=== PATIENT | male | born 1950 | race African-American/Black ===

== ENCOUNTER 2017-07-05 18:58 | Inpatient (IN) | payer MEDICARE, MEDICAID ==
[~2017-07-05] VITALS: Ht 172.7 cm; Wt 65.8 kg
[2017-07-05] MEDS ORDERED: SODIUM CHLORIDE 0.9% 1,000 ML IV ONE (21:55)
[2017-07-05] MEDS ORDERED: ONDANSETRON HCL 4MG/2ML VIAL IV ONE (22:00)
[2017-07-05] MEDS ORDERED: HYDROMORPHONE HCL/PF 2MG/ML CPJ IV ONE ×2 (22:00→23:45)
[2017-07-05] MEDS ORDERED: HYDROCORTISONE 1% RECTAL CREAM 30GM PR PRN (23:45)
[2017-07-06] VITALS (12 sets, daily range): BP systolic 92–113; BP diastolic 54–68
[2017-07-06 00:29] LABS: MEAN CORPUSCULAR VOLUME 87.5 fL (80.0-94.0); MEAN PLATELET VOLUME 7.4 fl (7.4-10.4); PLATELET 65 x1000/uL (130-400); RED BLOOD CELL COUNT 1.89 mill/uL (4.7-6.1); RED CELL DISTRIBUTION WIDTH 18.9 % (11.6-14.6)
[2017-07-06 00:35] LABS: HEMATOCRIT. 16.5 % (42.0-52.0); HEMOGLOBIN. 5.7 g/dL (14.0-18.0)
[2017-07-06 00:40] LABS: CHLORIDE 106 mEq/L (98-107)
[2017-07-06 00:48] LABS: CARBON DIOXIDE 24 mEq/L (21-32)
[2017-07-06 04:23] LABS: NUCLEATED RED BLOOD CELLS 4 /100 WBC
[2017-07-06 04:26] LABS: PLATELET ESTIMATE DECREASED
[2017-07-06] MEDS: HYDROMORPHONE HCL/PF 2MG/ML CPJ IV PRN ×3 (11:23→21:23)
[2017-07-06 19:39] LABS: HEMATOCRIT. 27.7 % (42.0-52.0); HEMOGLOBIN. 9.7 g/dL (14.0-18.0); MEAN CORPUSCULAR HEMOGLOBIN 30.1 pg (28.0-32.0); MEAN CORPUSCULAR VOLUME 85.5 fL (80.0-94.0); MEAN PLATELET VOLUME 7.6 fl (7.4-10.4); PLATELET 74 x1000/uL (130-400); RED BLOOD CELL COUNT 3.24 mill/uL (4.7-6.1); RED CELL DISTRIBUTION WIDTH 16.6 % (11.6-14.6)
[2017-07-06 20:45] LABS: NUCLEATED RED BLOOD CELLS 5 /100 WBC; PLATELET ESTIMATE DECREASED
[2017-07-07] VITALS: BP 115/72
[2017-07-07] MEDS: HYDROMORPHONE HCL/PF 2MG/ML CPJ IV PRN ×4 (01:27→13:38)
[2017-07-07 04:00] VITALS: BP 127/69
[2017-07-07] MEDS ORDERED: PENT400T2 PO (07:37)
[2017-07-07] MEDS ORDERED: TAMS-11 PO (07:37)
[2017-07-07] MEDS ORDERED: OXYB5TAB11 PO (07:37)
[2017-07-07] MEDS ORDERED: FURO-152 PO (07:37)
[2017-07-07 07:40] VITALS: BP 124/69
[2017-07-07] MEDS ORDERED: SIMV20TA6 PO (07:43)
[2017-07-07] MEDS ORDERED: OXYBUTYNIN CHLORIDE 5MG TABLET PO SCH (09:00)
[2017-07-07] MEDS ORDERED: TAMSULOSIN HCL 0.4MG SR CAPSULE PO SCH (09:00)
[2017-07-07] MEDS: PENTOXIFYLLINE 400MG TABLET PO SCH ×2 (09:15→13:38)
[2017-07-07 11:56] VITALS: BP 124/71
[2017-07-07 14:06] VITALS: BP 124/71
== END 2017-07-07 15:15 | DRG 811 ==
LOC: ER 20:28 → 8WST 07-06 00:59 → ENRESERV 07-06 04:55 → 8WST 07-06 06:30
PROVIDERS: ADMIT Internal Medicine; ATTEND Internal Medicine
PROC: 30233N1 Transfusion of Nonautologous Red Blood Cells into Peripheral Vein, Percutaneous Approach (ICD-10-PCS; principal; 2017-07-06)
DX: D64.81 Anemia due to antineoplastic chemotherapy (principal); E43 Unspecified severe protein-calorie malnutrition; C79.51 Secondary malignant neoplasm of bone; D63.0 Anemia in neoplastic disease; T45.1X5A Adverse effect of antineoplastic and immunosuppressive drugs, initial encounter; Y84.2 Radiological procedure and radiotherapy as the cause of abnormal reaction of the patient, or of later complication, without mention of misadventure at the time of the procedure; Y92.89 Other specified places as the place of occurrence of the external cause; Z92.21 Personal history of antineoplastic chemotherapy; Z92.3 Personal history of irradiation; Z85.46 Personal history of malignant neoplasm of prostate
CPT/HCPCS: 36415; 71010; 80053; 85025; 86850; 86900; 86920; 96361; 96374; 96375; 96376; 99291; J1170; J2405; J7030; J7050; P9016

== ENCOUNTER 2017-08-11 10:43 | Inpatient (IN) | payer MEDICARE, MEDICAID ==
[~2017-08-11] VITALS: Ht 172.7 cm; Wt 68.9 kg
[~2017-08-11 10:43] MED LIST: FURO-152 PO; OXYB5TAB11 PO; PENT400T2 PO; SIMV20TA6 PO; TAMS-11 PO
[2017-08-11] MEDS ORDERED: MORPHINE SULFATE 4 MG/ML CPJ (NOT FOR IM USE) IV STA (10:52)
[2017-08-11] MEDS ORDERED: MORPHINE SULFATE 2 MG/ML CPJ (NOT FOR IM USE) IV NR (11:23)
[2017-08-11 11:24] LABS: MEAN CORPUSCULAR VOLUME 86.8 fL (80.0-94.0); MEAN PLATELET VOLUME 7.1 fl (7.4-10.4); PLATELET 125 x1000/uL (130-400); RED BLOOD CELL COUNT 2.29 mill/uL (4.7-6.1); RED CELL DISTRIBUTION WIDTH 20.1 % (11.6-14.6)
[2017-08-11 11:28] LABS: HEMATOCRIT. 19.9 % (42.0-52.0); HEMOGLOBIN. 6.6 g/dL (14.0-18.0)
[2017-08-11 11:32] LABS: INR 1.2; PROTHROMBIN TIME 12.4 sec (9.4-11.6)
[2017-08-11 11:42] LABS: CARBON DIOXIDE 16 mEq/L (21-32); CHLORIDE 103 mEq/L (98-107)
[2017-08-11 11:43] LABS: TROPONIN I 0.03 ng/mL (0.00-0.04)
[2017-08-11 11:59] LABS: NUCLEATED RED BLOOD CELLS 2 /100 WBC; PLATELET ESTIMATE SLIGHTLY DECREASED
[2017-08-11] MEDS ORDERED: MORPHINE SULFATE 4 MG/ML CPJ (NOT FOR IM USE) IV ONE (13:00)
[2017-08-11] MEDS ORDERED: HYDRALAZINE HCL 50MG TABLET PO ONE (13:15)
[2017-08-11] MEDS ORDERED: MORPHINE SULFATE 10 MG/ML CPJ IV NR (13:20)
[2017-08-11] MEDS ORDERED: DIPHENHYDRAMINE 50MG/ML VIAL IV ONE (14:15)
[2017-08-11 20:00] VITALS: BP 170/96
[2017-08-11] MEDS: MORPHINE SULFATE 10 MG/ML CPJ IV PRN (20:08)
[2017-08-11] MEDS ORDERED: AMLO10TA4 PO (20:43)
[2017-08-11] MEDS ORDERED: DILT120C11 PO (20:43)
[2017-08-11 21:00] VITALS: BP 170/96
[2017-08-11] MEDS ORDERED: SODIUM CHLORIDE 0.9% 1,000 ML IV SCH (23:00)
[2017-08-12] VITALS (10 sets, daily range): BP systolic 120–204; BP diastolic 85–166
[2017-08-12] MEDS: HYDROMORPHONE HCL/PF 2MG/ML CPJ IV PRN ×3 (00:55→15:11)
[2017-08-12 06:16] LABS: INR 1.2; PROTHROMBIN TIME 12.9 sec (9.4-11.6)
[2017-08-12 06:38] LABS: HEMATOCRIT 21.4 % (42.0-52.0); HEMOGLOBIN 7.3 g/dL (14.0-18.0); MEAN CORPUSCULAR HEMOGLOBIN 29.8 pg (28.0-32.0); MEAN CORPUSCULAR VOLUME 86.7 fL (80.0-94.0); PLATELET 114 x1000/uL (130-400); RED BLOOD CELL COUNT 2.46 mill/uL (4.7-6.1); RED CELL DISTRIBUTION WIDTH 18.5 % (11.6-14.6)
[2017-08-12] MEDS: OXYBUTYNIN CHLORIDE 5MG TABLET PO SCH ×2 (08:32→20:54)
[2017-08-12] MEDS ORDERED: AMLODIPINE 10MG TABLET PO SCH (09:00)
[2017-08-12] MEDS ORDERED: FUROSEMIDE 20MG TABLET PO SCH (09:00)
[2017-08-12] MEDS ORDERED: DILTIAZEM HCL 90MG CAPSULE SR 12HR PO SCH (09:00)
[2017-08-12] MEDS: MORPHINE SULFATE 10 MG/ML CPJ IV PRN ×2 (10:16→19:43)
[2017-08-12] MEDS: TAMSULOSIN HCL 0.4MG SR CAPSULE PO SCH (11:56)
[2017-08-12 13:12] LABS: CREATINE KINASE 125 IU/L (39-308)
[2017-08-12] MEDS: DILTIAZEM HCL 60MG TABLET PO SCH ×3 (13:18→22:14)
[2017-08-12] MEDS: SODIUM BICARBONATE 100 MEQ in DEXTROSE 5% WATER 1,000 ML IV SCH ×2 (13:29→22:14)
[2017-08-12] MEDS: PENTOXIFYLLINE 400MG TABLET PO SCH (13:32)
[2017-08-12 15:40] LABS: BG BASE EXCESS -13.5 mmol/L (-2.0-2.0); BG CARBOXYHEMOGLOBIN 0.3 % (0.5-1.5); BG DEOXYHEMOGLOBIN 4.7 % (0.0-5.0); BG FRACTION INSPIRED OXYGEN 21; BG HCO3 ACT 12.5 mmol/L (22.0-26.0); BG METHEMOGLOBIN 0.6 % (0.0-1.5); BG OXYGEN SATURATION 95.3 % (92.0-98.5); BG OXYHEMOGLOBIN 94.4 % (94.0-97.0); BG PCO2 29.2 mmHg (35.0-45.0); BG PO2 89.7 mmHg (75.0-100.0); BG SAMPLE SITE RIGHT BRACHIAL; BG TOTAL HEMOGLOBIN 7.7 g/dL (12.0-18.0); BG VENT MODE ROOM AIR
[2017-08-12] MEDS ORDERED: SODIUM POLYSTYRENE SULFONATE 15 G/60 ML BOT PO NR (20:45)
[2017-08-12] MEDS: ATORVASTATIN CALCIUM 20MG TABLET PO SCH (20:54)
[2017-08-13] VITALS (14 sets, daily range): BP systolic 132–165; BP diastolic 79–99
[2017-08-13] MEDS: HYDROMORPHONE HCL/PF 2MG/ML CPJ IV PRN ×3 (00:45→10:01)
[2017-08-13] MEDS: SODIUM BICARBONATE 100 MEQ in DEXTROSE 5% WATER 1,000 ML IV SCH ×2 (04:51→15:08)
[2017-08-13] MEDS: DILTIAZEM HCL 60MG TABLET PO SCH ×4 (05:45→22:13)
[2017-08-13 07:21] LABS: MEAN CORPUSCULAR HEMOGLOBIN 29.6 pg (28.0-32.0); MEAN CORPUSCULAR VOLUME 86.6 fL (80.0-94.0); MEAN PLATELET VOLUME 7.7 fl (7.4-10.4); PLATELET 121 x1000/uL (130-400); RED BLOOD CELL COUNT 2.37 mill/uL (4.7-6.1); RED CELL DISTRIBUTION WIDTH 18.9 % (11.6-14.6)
[2017-08-13] MEDS ORDERED: DIATR MEGLU/DIATRIZOATE SOLN 30ML PO SCH (08:00)
[2017-08-13 08:21] LABS: HEMATOCRIT. 20.5 % (42.0-52.0)
[2017-08-13] MEDS: TAMSULOSIN HCL 0.4MG SR CAPSULE PO SCH (09:00)
[2017-08-13] MEDS: PENTOXIFYLLINE 400MG TABLET PO SCH (09:00)
[2017-08-13] MEDS: OXYBUTYNIN CHLORIDE 5MG TABLET PO SCH (09:00)
[2017-08-13 09:01] LABS: TROPONIN I 0.03 ng/mL (0.00-0.04)
[2017-08-13 10:19] LABS: TOTAL IRON BINDING CAPACITY 178 ug/dL (250-450)
[2017-08-13 17:15] LABS: PLATELET ESTIMATE DECREASED
[2017-08-13] MEDS: PREDNISONE 5MG TABLET PO SCH (18:56)
[2017-08-13 19:12] LABS: ANTI-NUCLEAR ANTIBODIES DIRECT Negative (Negative)
[2017-08-13] MEDS: BICALUTAMIDE 50 MG TABLET PO SCH ×2 (21:00→22:13)
[2017-08-13] MEDS: KETOCONAZOLE 200MG TABLET PO SCH (22:12)
[2017-08-13] MEDS: ATORVASTATIN CALCIUM 20MG TABLET PO SCH (22:13)
[2017-08-14] VITALS (39 sets, daily range): BP systolic 121–186; BP diastolic 74–106
[2017-08-14] MEDS: DILTIAZEM HCL 60MG TABLET PO SCH ×3 (05:38→12:59)
[2017-08-14 06:21] LABS: COMPLEMENT C3 124 mg/dL (82-167)
[2017-08-14] MEDS: PREDNISONE 5MG TABLET PO SCH ×2 (08:00→17:00)
[2017-08-14] MEDS: KETOCONAZOLE 200MG TABLET PO SCH (08:00)
[2017-08-14] MEDS: BICALUTAMIDE 50 MG TABLET PO SCH (08:50)
[2017-08-14] MEDS: PENTOXIFYLLINE 400MG TABLET PO SCH (08:51)
[2017-08-14 09:20] LABS: BASOPHILS % 0.7 % (0.0-2.0); EOSINOPHILS % 0.6 % (0.0-5.0); HEMATOCRIT. 28.4 % (42.0-52.0); HEMOGLOBIN. 9.8 g/dL (14.0-18.0); LYMPHOCYTES % 11.9 % (20.0-50.0); MEAN CORPUSCULAR HEMOGLOBIN 29.5 pg (28.0-32.0); MEAN CORPUSCULAR VOLUME 85.9 fL (80.0-94.0); MEAN PLATELET VOLUME 7.8 fl (7.4-10.4); MONOCYTES % 7.9 % (2.0-8.0); NEUTROPHILS % 78.9 % (40.0-76.0); PLATELET 94 x1000/uL (130-400); RED CELL DISTRIBUTION WIDTH 16.6 % (11.6-14.6)
[2017-08-14 09:57] LABS: CARBON DIOXIDE 18 mEq/L (21-32); CHLORIDE 98 mEq/L (98-107)
[2017-08-14] MEDS ORDERED: HEPARIN 1000 UNITS/ML 10ML ONE (11:04)
[2017-08-14] MEDS ORDERED: SODIUM BICARBONATE 4% (2.4MEQ) 5ML VIAL IV ONE (11:04)
[2017-08-14] MEDS ORDERED: LIDOCAINE HCL 1% 20ML VIAL (Pyxis) INJ ONE (11:04)
[2017-08-14 12:01] LABS: INR 1.3; PARTIAL THROMBOPLASTIN TIME 32.5 sec (23.4-31.0); PROTHROMBIN TIME 13.2 sec (9.4-11.6)
[2017-08-14 12:04] LABS: HEPATITIS B SURFACE ANTIGEN NEGATIVE
[2017-08-14 12:31] LABS: HEPATITIS B CORE AB IGM NEGATIVE
[2017-08-14 12:33] LABS: HEPATITIS A AB IGM NEGATIVE (NEGATIVE)
[2017-08-14] MEDS: HYDROMORPHONE HCL/PF 2MG/ML CPJ IV PRN ×2 (14:46→21:06)
[2017-08-14] MEDS: DILTIAZEM HCL 125 MG in DEXT 5% WATER 100 ML IV SCH (17:21)
[2017-08-14] MEDS: ATORVASTATIN CALCIUM 20MG TABLET PO SCH (21:00)
[2017-08-15] VITALS (69 sets, daily range): BP systolic 132–170; BP diastolic 73–110
[2017-08-15] MEDS: DILTIAZEM HCL 125 MG in DEXT 5% WATER 100 ML IV SCH ×2 (01:57→17:19)
[2017-08-15 05:52] LABS: BASOPHILS % 0.3 % (0.0-2.0); EOSINOPHILS % 0.6 % (0.0-5.0); HEMOGLOBIN. 9.6 g/dL (14.0-18.0); LYMPHOCYTES % 12.2 % (20.0-50.0); MEAN CORPUSCULAR HEMOGLOBIN 29.1 pg (28.0-32.0); MEAN CORPUSCULAR VOLUME 85.1 fL (80.0-94.0); MEAN PLATELET VOLUME 7.5 fl (7.4-10.4); MONOCYTES % 7.2 % (2.0-8.0); NEUTROPHILS % 79.7 % (40.0-76.0); PLATELET 85 x1000/uL (130-400); RED BLOOD CELL COUNT 3.29 mill/uL (4.7-6.1); RED CELL DISTRIBUTION WIDTH 17.1 % (11.6-14.6)
[2017-08-15] MEDS: PREDNISONE 5MG TABLET PO SCH ×2 (06:28→17:29)
[2017-08-15] MEDS: CITRIC ACID/SODIUM CITRATE SOLN 30ML UDC PO SCH ×3 (08:59→17:29)
[2017-08-15] MEDS: BICALUTAMIDE 50 MG TABLET PO SCH (08:59)
[2017-08-15] MEDS: PENTOXIFYLLINE 400MG TABLET PO SCH (09:00)
[2017-08-15 09:03] LABS: BG BASE EXCESS -6.4 mmol/L (-2.0-2.0); BG CARBOXYHEMOGLOBIN 0.3 % (0.5-1.5); BG DEOXYHEMOGLOBIN 3.8 % (0.0-5.0); BG FRACTION INSPIRED OXYGEN 21; BG HCO3 ACT 17.2 mmol/L (22.0-26.0); BG METHEMOGLOBIN 0.2 % (0.0-1.5); BG OXYGEN SATURATION 96.2 % (92.0-98.5); BG OXYHEMOGLOBIN 95.7 % (94.0-97.0); BG PCO2 27.5 mmHg (35.0-45.0); BG PH 7.413 (7.350-7.450); BG PO2 91.3 mmHg (75.0-100.0); BG SAMPLE SITE RIGHT BRACHIAL; BG TOTAL HEMOGLOBIN 9.7 g/dL (12.0-18.0); BG VENT MODE ROOM AIR
[2017-08-15] MEDS: HYDROMORPHONE HCL/PF 2MG/ML CPJ IV PRN ×4 (09:04→23:16)
[2017-08-15] MEDS: DEXT 5%/0.45% NACL 1000ML 1,000 ML IV SCH (09:56)
[2017-08-15] MEDS ORDERED: NA PHOS,M-B/NA PHOS,DI-BA ENEMA 118ML PR NR (16:30)
[2017-08-15] MEDS: ATORVASTATIN CALCIUM 20MG TABLET PO SCH (21:15)
[2017-08-16] VITALS (82 sets, daily range): BP systolic 92–166; BP diastolic 50–116
[2017-08-16] MEDS: DEXT 5%/0.45% NACL 1000ML 1,000 ML IV SCH (02:41)
[2017-08-16 05:35] LABS: BASOPHILS % 0.3 % (0.0-2.0); EOSINOPHILS % 0.5 % (0.0-5.0); HEMOGLOBIN. 9.2 g/dL (14.0-18.0); LYMPHOCYTES % 10.7 % (20.0-50.0); MEAN CORPUSCULAR HEMOGLOBIN 30.3 pg (28.0-32.0); MEAN CORPUSCULAR VOLUME 85.7 fL (80.0-94.0); MEAN PLATELET VOLUME 7.6 fl (7.4-10.4); MONOCYTES % 8.3 % (2.0-8.0); NEUTROPHILS % 80.2 % (40.0-76.0); PLATELET 80 x1000/uL (130-400); RED BLOOD CELL COUNT 3.04 mill/uL (4.7-6.1); RED CELL DISTRIBUTION WIDTH 16.7 % (11.6-14.6)
[2017-08-16] MEDS: PREDNISONE 5MG TABLET PO SCH ×2 (06:48→18:05)
[2017-08-16] MEDS: HYDROMORPHONE HCL/PF 2MG/ML CPJ IV PRN ×4 (06:49→21:42)
[2017-08-16] MEDS ORDERED: DIATR MEGLU/DIATRIZOATE SOLN 120ML ONE (07:50)
[2017-08-16] MEDS ORDERED: LIDOCAINE HCL 2% JELLY 5ML ONE (07:51)
[2017-08-16] MEDS ORDERED: DILTIAZEM HCL 5MG/ML 5ML VIAL IV SCH (08:30)
[2017-08-16] MEDS: ONDANSETRON HCL 4MG/2ML VIAL IV PRN (08:40)
[2017-08-16] MEDS ORDERED: HEPARIN SODIUM 1,000 UNIT/1ML VIAL IV SCH (09:45)
[2017-08-16] MEDS: DILTIAZEM HCL 125 MG in DEXT 5% WATER 100 ML IV SCH (10:43)
[2017-08-16] MEDS: CITRIC ACID/SODIUM CITRATE SOLN 30ML UDC PO SCH ×3 (11:31→18:05)
[2017-08-16] MEDS: PENTOXIFYLLINE 400MG TABLET PO SCH (11:31)
[2017-08-16] MEDS: BICALUTAMIDE 50 MG TABLET PO SCH (11:38)
[2017-08-16] MEDS ORDERED: DILTIAZEM HCL 5MG/ML 5ML VIAL IV NR (11:48)
[2017-08-16] MEDS: SEVELAMER CARBONATE 800 MG TABLET PO SCH ×2 (12:04→18:05)
[2017-08-16] MEDS: MORPHINE SULFATE 15MG TABLET SR PO SCH ×2 (15:11→20:36)
[2017-08-16] MEDS: DILTIAZEM HCL 125 MG in DEXT 5% WATER 100 ML IV PRN ×2 (16:27→23:38)
[2017-08-16] MEDS: ATORVASTATIN CALCIUM 20MG TABLET PO SCH (20:36)
[2017-08-17] VITALS (83 sets, daily range): BP systolic 106–174; BP diastolic 66–113
[2017-08-17] MEDS: ONDANSETRON HCL 4MG/2ML VIAL IV PRN (00:18)
[2017-08-17] MEDS: HYDROMORPHONE HCL/PF 2MG/ML CPJ IV PRN ×5 (00:21→17:34)
[2017-08-17] MEDS: DEXT 5%/0.45% NACL 1000ML 1,000 ML IV SCH (02:03)
[2017-08-17 06:18] LABS: HEMATOCRIT. 25.3 % (42.0-52.0); MEAN CORPUSCULAR HEMOGLOBIN 30.3 pg (28.0-32.0); MEAN CORPUSCULAR VOLUME 85.3 fL (80.0-94.0); MEAN PLATELET VOLUME 7.6 fl (7.4-10.4); PLATELET 82 x1000/uL (130-400); RED BLOOD CELL COUNT 2.97 mill/uL (4.7-6.1); RED CELL DISTRIBUTION WIDTH 16.8 % (11.6-14.6)
[2017-08-17 06:33] LABS: PHOSPHORUS 6.3 mg/dL (2.5-4.9)
[2017-08-17] MEDS: SEVELAMER CARBONATE 800 MG TABLET PO SCH ×4 (07:04→17:31)
[2017-08-17] MEDS: PREDNISONE 5MG TABLET PO SCH ×2 (07:04→17:31)
[2017-08-17] MEDS: CITRIC ACID/SODIUM CITRATE SOLN 30ML UDC PO SCH ×3 (09:32→17:00)
[2017-08-17] MEDS: BICALUTAMIDE 50 MG TABLET PO SCH (09:33)
[2017-08-17] MEDS: MORPHINE SULFATE 15MG TABLET SR PO SCH ×2 (09:34→20:26)
[2017-08-17] MEDS: PENTOXIFYLLINE 400MG TABLET PO SCH (09:35)
[2017-08-17] MEDS ORDERED: DILTIAZEM HCL 125 MG in DEXT 5% WATER 100 ML IV PRN ×3 (12:33)
[2017-08-17 13:22] LABS: PLATELET ESTIMATE DECREASED
[2017-08-17] MEDS: AMLODIPINE 5MG TABLET PO SCH ×2 (13:28→20:22)
[2017-08-17] MEDS: DILTIAZEM HCL 30MG TABLET PO SCH (17:31)
[2017-08-17] MEDS: ATORVASTATIN CALCIUM 20MG TABLET PO SCH (20:26)
[2017-08-18] VITALS (44 sets, daily range): BP systolic 91–173; BP diastolic 31–100
[2017-08-18] MEDS: DILTIAZEM HCL 30MG TABLET PO SCH ×4 (00:34→23:05)
[2017-08-18] MEDS: HYDROMORPHONE HCL/PF 2MG/ML CPJ IV PRN ×6 (00:58→22:35)
[2017-08-18] MEDS: DEXT 5%/0.45% NACL 1000ML 1,000 ML IV SCH (03:08)
[2017-08-18 05:41] LABS: HEMATOCRIT. 24.7 % (42.0-52.0); HEMOGLOBIN. 8.6 g/dL (14.0-18.0); MEAN CORPUSCULAR HEMOGLOBIN 30.1 pg (28.0-32.0); MEAN CORPUSCULAR VOLUME 86.3 fL (80.0-94.0); MEAN PLATELET VOLUME 7.8 fl (7.4-10.4); PLATELET 71 x1000/uL (130-400); RED BLOOD CELL COUNT 2.86 mill/uL (4.7-6.1); RED CELL DISTRIBUTION WIDTH 16.5 % (11.6-14.6)
[2017-08-18] MEDS: PREDNISONE 5MG TABLET PO SCH ×2 (05:52→17:35)
[2017-08-18] MEDS: SEVELAMER CARBONATE 800 MG TABLET PO SCH ×3 (05:53→17:34)
[2017-08-18 07:31] LABS: PLATELET ESTIMATE DECREASED
[2017-08-18] MEDS: AMLODIPINE 5MG TABLET PO SCH ×2 (08:14→21:24)
[2017-08-18] MEDS: PENTOXIFYLLINE 400MG TABLET PO SCH (08:14)
[2017-08-18] MEDS: CITRIC ACID/SODIUM CITRATE SOLN 30ML UDC PO SCH ×3 (08:14→17:34)
[2017-08-18] MEDS: MORPHINE SULFATE 15MG TABLET SR PO SCH ×2 (08:15→21:24)
[2017-08-18] MEDS: BICALUTAMIDE 50 MG TABLET PO SCH (08:28)
[2017-08-18] MEDS: KETOCONAZOLE 200MG TABLET PO SCH ×2 (12:50→22:45)
[2017-08-18] MEDS ORDERED: OPIUM/BELLADONNA ALKALOIDS 30/16.2MG SUPP PR NR (17:00)
[2017-08-18] MEDS: ATORVASTATIN CALCIUM 20MG TABLET PO SCH (21:24)
[2017-08-19] VITALS (23 sets, daily range): BP systolic 106–169; BP diastolic 62–97
[2017-08-19] MEDS: HYDROMORPHONE HCL/PF 2MG/ML CPJ IV PRN ×9 (00:33→23:14)
[2017-08-19] MEDS: DEXT 5%/0.45% NACL 1000ML 1,000 ML IV SCH (00:41)
[2017-08-19] MEDS: DILTIAZEM HCL 30MG TABLET PO SCH ×3 (06:29→18:15)
[2017-08-19 07:22] LABS: MEAN CORPUSCULAR VOLUME 87.5 fL (80.0-94.0); MEAN PLATELET VOLUME 7.8 fl (7.4-10.4); PLATELET 72 x1000/uL (130-400); RED BLOOD CELL COUNT 2.28 mill/uL (4.7-6.1); RED CELL DISTRIBUTION WIDTH 16.6 % (11.6-14.6)
[2017-08-19] MEDS: SEVELAMER CARBONATE 800 MG TABLET PO SCH ×3 (08:00→18:15)
[2017-08-19 08:35] LABS: HEMOGLOBIN. 6.8 g/dL (14.0-18.0)
[2017-08-19 08:36] LABS: HEMATOCRIT. 19.9 % (42.0-52.0)
[2017-08-19] MEDS: CITRIC ACID/SODIUM CITRATE SOLN 30ML UDC PO SCH ×3 (08:41→16:46)
[2017-08-19] MEDS: PENTOXIFYLLINE 400MG TABLET PO SCH (08:41)
[2017-08-19] MEDS: MORPHINE SULFATE 15MG TABLET SR PO SCH ×2 (08:42→22:16)
[2017-08-19] MEDS: PREDNISONE 5MG TABLET PO SCH ×2 (08:43→18:15)
[2017-08-19] MEDS: AMLODIPINE 5MG TABLET PO SCH ×2 (08:43→22:15)
[2017-08-19] MEDS: KETOCONAZOLE 200MG TABLET PO SCH ×2 (08:43→22:19)
[2017-08-19] MEDS ORDERED: OPIUM/BELLADONNA ALKALOIDS 60/16.2MG SUPP PR PRN (08:45)
[2017-08-19] MEDS: BICALUTAMIDE 50 MG TABLET PO SCH (09:22)
[2017-08-19 10:05] LABS: INR 1.2; PARTIAL THROMBOPLASTIN TIME 29.2 sec (23.4-31.0); PROTHROMBIN TIME 12.9 sec (9.4-11.6)
[2017-08-19] MEDS ORDERED: HEPARIN SODIUM 1,000 UNIT/1ML VIAL IV ONE (10:15)
[2017-08-19 12:05] LABS: NUCLEATED RED BLOOD CELLS 1 /100 WBC
[2017-08-19 12:06] LABS: PLATELET ESTIMATE DECREASED
[2017-08-19] MEDS ORDERED: OPIUM/BELLADONNA ALKALOIDS 30/16.2MG SUPP PR PRN (13:30)
[2017-08-19] MEDS: OXYBUTYNIN CHLORIDE 5MG TABLET PO SCH (13:59)
[2017-08-19] MEDS ORDERED: SORBITOL 70% SOLN 30ML PO NR ×2 (16:00→20:00)
[2017-08-19] MEDS: ONDANSETRON HCL 4MG/2ML VIAL IV PRN (16:46)
[2017-08-19] MEDS: ATORVASTATIN CALCIUM 20MG TABLET PO SCH (22:14)
[2017-08-20] MEDS: DILTIAZEM HCL 30MG TABLET PO SCH ×3 (00:02→12:00)
[2017-08-20] MEDS: OXYBUTYNIN CHLORIDE 5MG TABLET PO SCH ×2 (00:02→06:00)
[2017-08-20 00:18] LABS: HEMATOCRIT 26.9 % (42.0-52.0); HEMOGLOBIN 9.4 g/dL (14.0-18.0)
[2017-08-20] MEDS: HYDROMORPHONE HCL/PF 2MG/ML CPJ IV PRN ×2 (01:11→08:28)
[2017-08-20 02:00] VITALS: BP 163/91
[2017-08-20 02:54] LABS: BG BASE EXCESS -2.9 mmol/L (-2.0-2.0); BG CARBOXYHEMOGLOBIN 0.3 % (0.5-1.5); BG DEOXYHEMOGLOBIN 0.8 % (0.0-5.0); BG FRACTION INSPIRED OXYGEN 100; BG HCO3 ACT 22.2 mmol/L (22.0-26.0); BG METHEMOGLOBIN 0.1 % (0.0-1.5); BG OXYGEN SATURATION 99.2 % (92.0-98.5); BG OXYHEMOGLOBIN 98.8 % (94.0-97.0); BG PCO2 39.8 mmHg (35.0-45.0); BG PH 7.364 (7.350-7.450); BG PO2 383.2 mmHg (75.0-100.0); BG SAMPLE SITE RIGHT BRACHIAL; BG TOTAL HEMOGLOBIN 9.6 g/dL (12.0-18.0); BG VENT MODE MASK - NRB
[2017-08-20 04:00] VITALS: BP 95/46
[2017-08-20] MEDS ORDERED: LORAZEPAM 2MG/ML CPJ IM PRN (04:00)
[2017-08-20] MEDS: DEXT 5%/0.45% NACL 1000ML 1,000 ML IV SCH (04:30)
[2017-08-20 06:00] VITALS: BP 74/57
[2017-08-20] MEDS ORDERED: SORBITOL 70% SOLN 30ML PO NR (06:00)
[2017-08-20 08:00] VITALS: BP 51/48
[2017-08-20] MEDS: SEVELAMER CARBONATE 800 MG TABLET PO SCH (08:00)
[2017-08-20] MEDS: PREDNISONE 5MG TABLET PO SCH (08:00)
[2017-08-20] MEDS ORDERED: HYDROMORPHONE HCL/PF 2MG/ML CPJ IM PRN (08:30)
[2017-08-20] MEDS: BICALUTAMIDE 50 MG TABLET PO SCH (09:00)
[2017-08-20] MEDS: PENTOXIFYLLINE 400MG TABLET PO SCH (09:00)
[2017-08-20] MEDS: KETOCONAZOLE 200MG TABLET PO SCH (09:00)
[2017-08-20] MEDS: AMLODIPINE 5MG TABLET PO SCH (09:00)
[2017-08-20] MEDS: CITRIC ACID/SODIUM CITRATE SOLN 30ML UDC PO SCH (09:00)
[2017-08-20] MEDS: MORPHINE SULFATE 15MG TABLET SR PO SCH (09:00)
[2017-08-20 10:00] VITALS: BP 54/34
[2017-08-20 12:00] VITALS: BP 36/25
== END 2017-08-20 12:10 | disposition expired | DRG 542 ==
LOC: ER 10:56 → 6WST 12:20 → ENRESERV 17:33 → 5EST 08-12 09:53 → MICUSO 08-14 16:52 → 5EST 08-18 22:10
PROVIDERS: ADMIT Internal Medicine; ATTEND Internal Medicine
PROC: 30233N1 Transfusion of Nonautologous Red Blood Cells into Peripheral Vein, Percutaneous Approach (ICD-10-PCS; 2017-08-11)
PROC: 5A1D70Z Performance of Urinary Filtration, Intermittent, Less than 6 Hours Per Day (ICD-10-PCS; 2017-08-14)
PROC: 02H633Z Insertion of Infusion Device into Right Atrium, Percutaneous Approach (ICD-10-PCS; 2017-08-14)
PROC: B244ZZZ Ultrasonography of Right Heart (ICD-10-PCS; 2017-08-14)
PROC: 5A1D70Z Performance of Urinary Filtration, Intermittent, Less than 6 Hours Per Day (ICD-10-PCS; 2017-08-16)
PROC: 5A1D70Z Performance of Urinary Filtration, Intermittent, Less than 6 Hours Per Day (ICD-10-PCS; 2017-08-18)
PROC: 5A1D70Z Performance of Urinary Filtration, Intermittent, Less than 6 Hours Per Day (ICD-10-PCS; principal; 2017-08-19)
DX: C79.51 Secondary malignant neoplasm of bone (principal); E43 Unspecified severe protein-calorie malnutrition; G92 Toxic encephalopathy; N17.9 Acute kidney failure, unspecified; D61.818 Other pancytopenia; D68.9 Coagulation defect, unspecified; E11.22 Type 2 diabetes mellitus with diabetic chronic kidney disease; S72.011A Unspecified intracapsular fracture of right femur, initial encounter for closed fracture; I13.0 Hypertensive heart and chronic kidney disease with heart failure and stage 1 through stage 4 chronic kidney disease, or unspecified chronic kidney disease; E87.2 Acidosis; N13.30 Unspecified hydronephrosis; C61 Malignant neoplasm of prostate; I50.9 Heart failure, unspecified; Z66 Do not resuscitate; Z96.649 Presence of unspecified artificial hip joint; N40.1 Benign prostatic hyperplasia with lower urinary tract symptoms; N18.9 Chronic kidney disease, unspecified; B19.20 Unspecified viral hepatitis C without hepatic coma; D63.1 Anemia in chronic kidney disease; E78.5 Hyperlipidemia, unspecified; E86.9 Volume depletion, unspecified; E87.5 Hyperkalemia; I25.10 Atherosclerotic heart disease of native coronary artery without angina pectoris; I48.0 Paroxysmal atrial fibrillation; J44.9 Chronic obstructive pulmonary disease, unspecified; K82.8 Other specified diseases of gallbladder; R31.0 Gross hematuria; W18.39XA Other fall on same level, initial encounter; Y93.89 Activity, other specified; Y92.89 Other specified places as the place of occurrence of the external cause; Y99.8 Other external cause status; Z79.899 Other long term (current) drug therapy; I25.2 Old myocardial infarction; Z86.73 Personal history of transient ischemic attack (TIA), and cerebral infarction without residual deficits; Z87.891 Personal history of nicotine dependence; Z95.1 Presence of aortocoronary bypass graft; Z99.2 Dependence on renal dialysis; Z68.23 Body mass index [BMI] 23.0-23.9, adult
CPT/HCPCS: 36415; 36430; 36556; 36600; 70450; 71010; 73502; 73552; 74176; 76770; 76937; 80048; 80053; 82270; 82375; 82550; 82728; 82805; 82962; 83540; 83550; 83735; 84100; 84153; 84484; 85014; 85018; 85025; 85027; 85044; 85384; 85610; 85730; 86038; 86160; 86705; 86709; 86803; 86850; 86900; 86920; 87040; 87340; 93005; 93306; 96374; 96375; 96376; 99285; C1752; C1893; J1170; J1200; J1644; J2060; J2270; J2405; J3490; J7030; J7040; J7060; J7070; J7512; P9016; P9021; Q9963; A4315